=== PATIENT | female | born 1950 | race Caucasian/White ===

== ENCOUNTER 2018-02-18 08:32 | Outpatient (RCR) | payer MEDICARE, OTHER, SELFPAY | END 2018-03-13 | LOC: M CR 08:32 | DX: Z51.89 Encounter for other specified aftercare (principal); Z98.61 Coronary angioplasty status | CPT/HCPCS: 93798 ==

== ENCOUNTER 2018-03-15 13:31 | Outpatient (RCR) | payer MEDICARE, OTHER | END 2018-04-13 | LOC: M CR 13:31 | DX: Z51.89 Encounter for other specified aftercare (principal); Z98.61 Coronary angioplasty status | CPT/HCPCS: 93798 ==

== ENCOUNTER 2018-04-14 12:00 | Outpatient (RCR) | payer MEDICARE, OTHER | END 2018-05-14 | LOC: M CR 12:00 | DX: Z98.61 Coronary angioplasty status (principal) | CPT/HCPCS: 93798 ==

== ENCOUNTER → 2019-02-02 | Outpatient (REF) | payer MEDICARE, OTHER ==
[~2019-02-02] MED LIST: ASPI81TA26 PO; ATOR40TA75 PO; AZEL0.05 OP; BIOT2500 PO; BRIL90TA PO; CETI10TA PO; L-FO500T PO; LOSA25TA14 PO; METO1TAB87 PO; MULT1TAB10 PO; NITR0.4S14 SL; REST0.05 OP; VITA20008 PO
[2019-02-04 10:54] LABS: HEPATITIS A ANTIBODY IGM NEGATIVE (NEGATIVE); HEPATITIS B CORE ANTIBODY IGM NEGATIVE (NEGATIVE); HEPATITIS B SURFACE ANTIGEN NEGATIVE (NEGATIVE)
== END ==
LOC: M LAB REF 17:35
PROVIDERS: ATTEND Nurse Practitioner Adult Health
DX: R74.0 Nonspecific elevation of levels of transaminase and lactic acid dehydrogenase [LDH] (principal); Z79.82 Long term (current) use of aspirin; Z79.899 Other long term (current) drug therapy

== ENCOUNTER → 2020-03-11 | Outpatient (CLI) | payer MEDICARE, OTHER ==
--- NOTE | 2020-03-11 13:58 | REP ---
Clinical: Pain. Technique: AP, lateral, bilateral oblique views of the left foot. Findings: Age-related arthritic changes are appreciated primarily involving the midfoot and distal interphalangeal joints and first toe. No acute fracture dislocation identified. Impression: Arthritic changes. No acute fracture or dislocation identified. Electronically Signed by Kaleb Rivera MD 03/11/2020 01:48 P
== END ==
LOC: M WUC 13:25
PROVIDERS: ATTEND Physician Assistant
DX: M25.572 Pain in left ankle and joints of left foot (principal)

== ENCOUNTER → 2022-05-02 | Outpatient (CLI) | payer MEDICARE, OTHER ==
[~2022-05-02] MED LIST changes: +LOSA25TA13 PO; -LOSA25TA14 PO
== END ==
LOC: M WUC 15:03
PROVIDERS: ATTEND Physician Assistant Medical
DX: M17.12 Unilateral primary osteoarthritis, left knee (principal)